=== PATIENT | male | born 2000 | race Caucasian/White ===

== ENCOUNTER 2019-04-10 19:55 | Emergency (ER) | payer BC ==
[2019-04-10 21:34] VITALS: BP 143/74
--- NOTE | 2019-04-10 21:53 | UC ---
Skin Complaint HPI - HPI Summary HPI Summary: 18 yo with onset of rash this morning urticaria on forerms, neck upper back and inner thigh at the knee. no meds used started minocin and a topical acne med last week. no new foods, hx anxiety worried about bed bugs being the cause of the rash - History of Current Complaint Chief Complaint: UCSkin Time Seen by Provider: 04/10/19 21:52 Stated Complaint: RASH/HIVES Hx Obtained From: Patient Onset/Duration: Sudden Onset Skin Exposure Onset/Duration: Hours Ago Timing: Intermittent Episodes Lasting: - migrating rash--flares and fades, most pruritic at time of wheal Onset Severity: Mild Current Severity: Moderate Pain Intensity: 2 Location: Diffuse Aggravating Factor(s): Clothing, Touch Alleviating Factor(s): Nothing - no meds tried as the pharmacy closed Associated Signs & Symptoms: Positive: Rash. Negative: Fever, Cough, Wheezing, Hoarseness, Throat Tightening - Allergy/Home Medications Allergies/Adverse Reactions: Allergies Allergy/AdvReac Type Severity Reaction Status Date / Time No Known Allergies Allergy Verified 04/10/19 21:26 Home Medications: Home Medications Minocycline HCl [Minocycline Hydrochloride] 100 mg PO BID 04/10/19 [History Confirmed 04/10/19] PMH/Surg Hx/FS Hx/Imm Hx Previously Healthy: Yes - acne Psychological History: Anxiety - hx of panic disorder - Surgical History Surgical History: None - Family History Known Family History: Positive: Non-Contributory - Social History Occupation: Student Lives: Dormitory/Roommates Alcohol Use: Rare Substance Use Type: None Smoking Status (MU): Never Smoked Tobacco Review of Systems All Other Systems Reviewed And Are Negative: Yes Constitutional: Positive: Negative, Other - no recent fever or illness. Skin: Positive: Rash Eyes: Positive: Negative ENT: Positive: Negative Respiratory: Positive: Negative Cardiovascular: Positive: Negative Gastrointestinal: Positive: Negative Motor: Positive: Negative Neurovascular: Positive: Negative Musculoskeletal: Positive: Negative. Negative: Arthralgia Neurological: Negative: Headache Psychological: Positive: Negative Is Patient Immunocompromised?: No Physical Exam Triage Information Reviewed: Yes Vital Signs: Initial Vital Signs Temp 98.4 F 04/10/19 21:31 Pulse 78 04/10/19 21:31 Resp 15 04/10/19 21:31 BP 143/74 04/10/19 21:31 Pulse Ox 99 04/10/19 21:31 Eyes: Positive: Conjunctiva Clear ENT: Positive: Pharynx normal - No oral swelling, oropharynx patent., TMs normal Neck: Positive: Supple, Nontender, No Lymphadenopathy Respiratory: Positive: Lungs clear, Normal breath sounds Musculoskeletal Exam: Normal Neurological Exam: Normal Psychological Exam: Normal Skin Exam: Other - urticaria --few on upper back, confluent on right medial elbow, left forearm, medial left knee. Course/Dx - Course Course Of Treatment: prednisone, benadryl, zyrtec HOLD minocycline until call out to his director of managed services. - Differential Diagnoses - Skin Complaint Differential Diagnoses: Contact Dermatitis, Urticaria - Diagnoses Provider Diagnosis: Urticaria Discharge ED - Sign-Out/Discharge Documenting (check all that apply): Patient Departure All imaging exams completed and their final reports reviewed: No Studies - Discharge Plan Condition: Stable Disposition: HOME Prescriptions: predniSONE [Prednisone 20 MG TAB] 40 mg PO DAILY #8 tablet Patient Education Materials: Urticaria (ED) Referrals: No Primary Care Phys,NOPCP [Primary Care Provider] - Additional Instructions: You have taken prednisone 40mg here; please continue once daily dosing to decrease the reaction. Take with food, and put on hold if it causes irritability , insomnia or stomach upset. Take benadryl before bed tonight, and th3en as needed. Begin Zyrtec 10mg once daily to help to decrease the reaction. Take daily for 2 weeks. HOLD minocycline until you speak with the director of managed services because this is the likely cause of the hives. Ensure that you keep your skin moisturized to help with the itching. Take cool showers or baking soda baths to relieve itching. THESE ARE NOT BED BUG BITES. - Billing Disposition and Condition Condition: STABLE Disposition: Home
[2019-04-10] MEDS ORDERED: diPHENhydraMINE PO* 25 MG PO ONE (22:06)
== END 2019-04-10 22:23 | disposition home or self-care (01) ==
LOC: UCCORT 19:55
DX: L50.9 Urticaria, unspecified (principal)
CPT/HCPCS: 99202; A9270-GY; G0463; J7512